=== PATIENT | female | born 1950 | race Two or more races ===

== ENCOUNTER 2024-02-13 00:23 | Emergency (ER) | payer MEDICARE, SELFPAY ==
[2024-02-13 00:24] VITALS: BMI 27.2
[2024-02-13 00:44] VITALS: BP 124/84; PULSE 88; RESP 16; TEMP 36.6; O2SAT 99
--- NOTE | 2024-02-13 00:48 | XR_ITS ---
Examination: Duplex scan of the lower extremity, unilateral left complete Date and time of exam: February 13, 2024 0330 hrs. Indications: Left leg pain beginning 4 hours ago Technique: Duplex scan of the extremity veins using B-mode/grayscale imaging and Doppler spectral analysis and color flow Attention is directed to internal echogenicity, compression and augmentation involving these veins, color flow assessment, spectral analysis Findings: Major deep venous structures in the extremity demonstrate normal course and caliber. There is no evidence of deep vein thrombosis. Normal color flow and spectral analysis Impression: Negative for DVT..
--- NOTE | 2024-02-13 00:49 | PD.EDRME ---
Rapid Medical Screening Exam RME Arrival date/time: 02/13/24 00:23 73 year old female present to ED for c/o of left calf/back pain since I have greeted and performed a focused initial assessment of this patient. A comprehensive ED assessment and evaluation of the patient, analysis of all test results, and completion of the medical decision making process will be conducted by additional ED providers. Chief Complaint: Extremity Problem,Nontraumatic Time Seen by Provider: 02/13/24 00:26 Vital signs: Vital Signs Temperature 98 F 02/13/24 00:44 Pulse Rate 88 02/13/24 00:44 Respiratory Rate 16 02/13/24 00:44 Blood Pressure 124/84 02/13/24 00:44 Pulse Oximetry (%) 99 02/13/24 00:44 Oxygen Delivery Method Room Air 02/13/24 00:44
[2024-02-13] MEDS: KETOROLAC INJ 60 MG/2 ML VIAL 30 MG IM (01:26)
[2024-02-13] MEDS: GABAPENTIN 300 MG CAPSULE PO (01:26)
[2024-02-13] MEDS: predniSONE 20 MG TABLET 40 MG PO (01:26)
--- NOTE | 2024-02-13 04:41 | PRELIM_ITS ---
Left lower extremity venous Doppler ultrasound. February 13, 2024 0339 hours Clinical history: Calf pa in since Technique: Duplex scan of the left lower extremity deep venous systems was performe d utilizing 2D grayscale imaging, Doppler spectral analysis and color flow Doppler and with compressi on. Comparison: NoneFindings:Mejia scale, color flow and spectral Doppler evaluation of the left lower extremity deep veins was performed.The common femoral, superficial femoral and popliteal veins are p atent and compressible. Normal respiratory variation is noted. There is no evidence of occlusive or n onocclusive thrombus. The great saphenous vein is patent and compressible at the level of the sapheno femoral junction. The posterior tibial and peroneal veins are patent and compressible. Impression:No sonographic evidence of deep venous thrombosis in the left lower extremity. Report Electronically Sig musa By: Farzana Hall 02/13/2024 4:40:51 AM [EST]
--- NOTE | 2024-02-13 04:43 | PD.EDEXREM ---
ED Extremity Problem RME/HPI General Chief complaint: Extremity Problem,Nontraumatic Stated complaint: NOT FEELING GOOD, LEFT LEG PAIN Time Seen by Provider: 02/13/24 00:26 Arrival date/time: 02/13/24 00:23 73 year old female present to emergency room with c/o of left leg pain since . per patient was lifting heavy items more then usually. No fevers No unexplained weight loss of night sweats No recent surgeries or recurrent bacterial infections No IVDU Patient is not immunocompromised Denies any new focal neurological deficits or new motor weakness Denies bowel or bladder incontinence or saddle anesthesia LOCATION: back and leg SEVERITY: Symptoms are described as being severe with limitations on activities of daily living QUALITY: Symptoms are described as being dull or achy CONTEXT: The patient is unable to identify any inciting events. DURATION/TIMING: The symptoms started approximately one day ago and have been constant this then. ASSOCIATED SYMPTOMS: The patient is unable to identify any other associated symptoms. MODIFYING FACTORS: The patient is unable to identify any alleviating or aggravating symptoms. PERTINENT ROS: no fevers, no IVDU, denies any ripping or tearing sensations, no associated abdominal pain, no focal neurological deficits and denies any saddle anesthesia, and no bowel or bladder incontinence REVIEW OF SYSTEMS: See History of Present Illness - with the exception of those mentioned in the history of present illness, all other systems reviewed and reported as negative GENERAL: In general the patient is awake, interactive, in an emergency department gurney. HEAD/EYES/EARS/NOSE/THROAT: normo-cephalic, atraumatic, mucus membranes are moist, anicteric, palpebral conjunctiva is pink, trachea is midline. CARDIOVASCULAR: regular rate and regular rhythm, no murmurs, heart sounds are not distant, strong pulses in all four extremities that are equal and symmetric bilateral upper and lower extremities, normal capillary refill. CHEST/PULMONARY: normal chest rise and fall, good air movement, clear to auscultation bilaterally, normal inspiratory to expiratory ratios without evidence of respiratory distress. NECK: No midline/Paraspinal tenderness, no step off ROM/Strenght intact No Kernig and bruzinski sign. No trauma ABDOMEN: soft, not tender, no masses appreciated BACK: normal range of motion without pain. NEUROLOGICAL: cranio-facial features are symmetric, moves all four extremities equally without obvious limitations or weakness. EXTREMITY: + Left lower calf tenderness, no tenderness to palpation over the long bones or large joints of the bilateral upper no joint swelling, no joint erythema, no signs of trauma, no unilateral leg swelling and no peripheral edema. SKIN: warm, dry, well-perfused, no jaundice, no rash, no telangiectasias or petechia. PSYCH: calm, cooperative, no evidence of psychosis or agitation RME / HPI RME / HPI Narrative: 02/13/24 00:23 73 year old female present to ED for c/o of left calf/back pain since I have greeted and performed a focused initial assessment of this patient. A comprehensive ED assessment and evaluation of the patient, analysis of all test results, and completion of the medical decision making process will be conducted by additional ED providers. Related Data Previous Rx's ?Medication ?Instructions ?Recorded cyclobenzaprine 5 mg tablet 5 mg PO BID PRN muscle spasm #14 02/13/24 tabs methylprednisolone 4 mg tablets in 4 mg PO .as directed #21 tabs 02/13/24 a dose pack (Medrol (Gulshan)) naproxen 500 mg tablet,delayed 500 mg PO BID PRN pain #30 tabs 02/13/24 release Allergies Allergy/AdvReac Type Severity Reaction Status Date / Time No Known Allergies Allergy Mild Uncoded 04/22/07 13:41 Course Course Course Narrative: This patient presents with back pain most consistent with leg/back pain for 4 days Differential diagnoses includes lumbago versus musculoskeletal spasm / strain versus sciatica.No back pain red flags on history or physical. Presentation not consistent with malignancy (lack of history of malignancy, lack of B symptoms), fracture (no trauma, no bony tenderness to palpation), cauda equina (no bowel or urinary incontinence/retention, no saddle anesthesia, no distal weakness), AAA, viscus perforation , pulmonary embolism, renal colic, pyelonephritis (afebrile, no CVAT, no urinary symptoms). US: negative for DVT Plan: pain control, supportive care, reassess Quality Measures none Orders Category Date Time Status US venous doppler LE LT Stat Exams 02/13/24 00:48 Taken Gabapentin [Neurontin] Med 02/13/24 00:48 Discontinued 300 mg PO X1 ONE HYDROcodone*/APAP 5/325 [[place] 5/325] Med 02/13/24 03:29 Discontinued 1 tab PO X1 ONE Ketorolac Inj [Toradol Inj] Med 02/13/24 00:48 Discontinued 30 mg IM X1 ONE predniSONE Med 02/13/24 00:48 Discontinued 40 mg PO X1 ONE Vital Signs Vital signs: Vital Signs Temperature 98 F 02/13/24 00:44 Pulse Rate 88 02/13/24 00:44 Respiratory Rate 16 02/13/24 00:44 Blood Pressure 124/84 02/13/24 00:44 Pulse Oximetry (%) 99 02/13/24 00:44 Oxygen Delivery Method Room Air 02/13/24 00:44 Extremity Problem Patient data External records reviewed:: [facility] previous records Clinical information provided by:: patient Social determinants that could affect healthcare access:: none Patient has the following chronic illnesses:: as stated in chart How is presenting disease/condition affected by chronic disease/condition?: no chronic disease Evaluation data The following diagnostics were reviewed and interpreted by me:: radiology exam(s) Lab and/or radiology exams considered but not ordered:: none Interpretation Summary: US: no dvt Medications / Prescriptions Medications or Prescriptions considered but not ordered:: none Medication administrations:: Medication Administration History Discontinued Medications Hydrocodone Bitart/Acetaminophen (Hydrocodone/Apap 5/325 Tablet) 1 tab PO X1 ONE Stop: 02/13/24 03:30 Gabapentin (Gabapentin 300 Mg Capsule) 300 mg PO X1 ONE Stop: 02/13/24 00:49 Last Admin: 02/13/24 01:26 Dose: 300 mg Documented By: OA Ketorolac Tromethamine (Ketorolac Inj 60 Mg/2 Ml Vial) 30 mg IM X1 ONE Stop: 02/13/24 00:49 Last Admin: 02/13/24 01:26 Dose: 30 mg Documented By: OA Prednisone (Prednisone 20 Mg Tablet) 40 mg PO X1 ONE Stop: 02/13/24 00:49 Last Admin: 02/13/24 01:26 Dose: 40 mg Documented By: OA none Consultations Consultation(s) initiated? (list below): No Diagnosis Most likely diagnosis given after review of the tests above:: sciatica Admission Indicated Admission indicated?: not indicated Admission Request Was there a request for admission?: No Disposition Plan Disposition Plan: Discharge Discharge Attestation Discharge Attestation: The patient and all family members were given an opportunity to ask questions and understood the discharge instructions. Discharge instructions specifically effects, indications for sooner follow up or return to the emergency department, and the expected course of current diagnosis. Patient condition: Stable Discharge Plan Plan Patient Disposition: HOME (Self Care) Health Concerns: Follow with PMD as directed Take tylenol or motrin as need Return to ED if sx worsen Prescriptions/Referrals Prescriptions/Med Rec: New methylprednisolone [Medrol (Gulshan)] 4 mg tablets,dose pack 4 mg PO .as directed Qty: 21 0RF naproxen 500 mg tablet,delayed release (DR/EC) 500 mg PO BID PRN (Reason: pain) Qty: 30 0RF cyclobenzaprine 5 mg tablet 5 mg PO BID PRN (Reason: muscle spasm) Qty: 14 0RF Referrals: Paulo Freeman MD [Primary Care Provider] - In 1 week Problem List Clinical Impression: Sciatica Patient/Caregiver Discharge Instructions Education Materials: Self Care Back Day, ED Sciatica Print Language: Polish Stand Alone Forms: Brandy Award Info., Patient Portal Info Letter
[2024-02-13 05:34] VITALS: BP 154/76; PULSE 80; RESP 18; TEMP 36.6; O2SAT 96
[2024-02-13] MEDS: HYDROcodone/APAP 5/325 TABLET 1 TAB PO (05:41)
== END 2024-02-13 05:46 | disposition home or self-care (01) ==
PROVIDERS: Emergency Provider Emergency Medicine; PCP Family Medicine
DX: M54.32 Sciatica, left side (principal)
CPT/HCPCS: 93971; 96372; 99284; J1885; J7512; A9270